=== PATIENT | female | born 1950 | race Caucasian/White ===

== ENCOUNTER → 2024-01-12 09:00 | Outpatient (BNVA) | payer OTHER, SELFPAY | PROVIDERS: PCP Nurse Practitioner Family; Visit Provider Nurse Practitioner Family | DX: E78.00 Pure hypercholesterolemia, unspecified (principal); I10 Essential (primary) hypertension | CPT/HCPCS: 80053; 80061; 85025 ==

== ENCOUNTER → 2024-07-24 10:30 | Outpatient (BNVA) | payer OTHER, SELFPAY | PROVIDERS: PCP Nurse Practitioner Family; Visit Provider Nurse Practitioner Family | DX: I10 Essential (primary) hypertension (principal) | CPT/HCPCS: 80053; 80061 ==

== ENCOUNTER → 2024-08-03 14:31 | Outpatient (BNVA) | payer OTHER, SELFPAY | PROVIDERS: PCP Nurse Practitioner Family; Visit Provider Nurse Practitioner Family | DX: R74.8 Abnormal levels of other serum enzymes (principal) | CPT/HCPCS: 82977; 86705; 86706; 86709; 86803; 87340 ==

== ENCOUNTER 2024-08-09 07:19 | Outpatient (CLI) | payer OTHER, MEDICAID, SELFPAY ==
--- NOTE | 2024-08-09 07:45 | US_ITS ---
WS: [id number] RIGHT UPPER QUADRANT ULTRASOUND HISTORY: R74.8 - Abnormal levels of other serum enzymes COMPARISON: None available. Liver: 12.8 cm in length. Normal size liver and echogenicity. No bile duct dilatation or mass. Portal Vein: Normal hepatopetal flow with monophasic waveform. Gallbladder: Prior cholecystectomy. CBD: 0.4 cm Pancreas: Normal size and echogenicity. Right kidney: 11.2 cm in length. Exophytic cyst lower pole measures 3.7 x 3.3 x 3.9 cm. No solid mass or obstruction. Aorta and IVC: Unremarkable abdominal aorta and IVC. No ascites. US/US liver [id number] IMPRESSION: 1. Prior cholecystectomy. 2. Normal common bile duct. No intrahepatic duct dilatation. 3. Lower pole RIGHT renal cyst, 3.9 cm.
== END 2024-08-09 07:20 | disposition home or self-care (01) ==
PROVIDERS: PCP Nurse Practitioner Family; Visit Provider Nurse Practitioner Family
DX: R74.8 Abnormal levels of other serum enzymes (principal); Z90.49 Acquired absence of other specified parts of digestive tract; N28.1 Cyst of kidney, acquired
CPT/HCPCS: 76705

== ENCOUNTER → 2025-01-22 10:00 | Outpatient (BNVA) | payer OTHER, MEDICAID, SELFPAY | PROVIDERS: PCP Nurse Practitioner Family; Visit Provider Nurse Practitioner Family | DX: I10 Essential (primary) hypertension (principal) | CPT/HCPCS: 80053; 80061 ==

== ENCOUNTER 2025-02-02 13:14 | Outpatient (CLI) | payer OTHER, MEDICAID, SELFPAY ==
--- NOTE | 2025-02-02 13:30 | XR_ITS ---
WS: [id number] DEXA (DUAL ENERGY X-RAY ABSORPTIOMETRY) Bone mineral density was performed using a Intent machine. HISTORY: Z78.0 - Asymptomatic menopausal state COMPARISON: None available. Lumbar spine BMD (L1-L4): 1.128 g/cm2 T score: -0.4 Z score: 0.5 Total hip BMD: Left: 0.935 g/cm2. T score: -0.6 Z score: 0.6 Right: 0.980 g/cm2. T score: -0.2 Z score: 1.0 10 year probability of a major osteoporotic fracture is 11.0%. XR/XR DEXA axial skeleton* 94802 IMPRESSION: NORMAL BONE MINERAL DENSITY based upon the WHO classification for females.
== END 2025-02-02 13:15 | disposition home or self-care (01) ==
LOC: RAD 13:16
PROVIDERS: PCP Nurse Practitioner Family; Visit Provider Nurse Practitioner Family
DX: Z13.820 Encounter for screening for osteoporosis (principal); Z78.0 Asymptomatic menopausal state
CPT/HCPCS: 77080; 99204

== ENCOUNTER 2025-02-13 09:42 | Outpatient (CLI) | payer OTHER, MEDICAID, SELFPAY | END 2025-02-13 09:43 | disposition home or self-care (01) | LOC: MOBLMAM 09:46 | PROVIDERS: PCP Nurse Practitioner Family; Visit Provider Nurse Practitioner Family | DX: Z12.31 Encounter for screening mammogram for malignant neoplasm of breast (principal) | CPT/HCPCS: 77063; 77067 ==

== ENCOUNTER → 2025-02-21 10:46 | Day surgery (SDC) | payer OTHER, MEDICAID, SELFPAY ==
[2025-02-21 11:27] VITALS: BP 151/90; PULSE 96; RESP 18; TEMP 36.4; O2SAT 96
[2025-02-21 11:30] VITALS: BMI 35.4
--- NOTE | 2025-02-21 11:47 | ECG_ITS ---
[facility] Test Date: 2025-02-21 Pat Name: Kasey Yao Department: Room: Gender: Female Director Asset: : [id number] Requested By: Jeff Ramos Order Number: [id number] Jaquelin MD: Nixon Estrada M.D. Measurements Intervals [place] Rate: 82 P: 44 SD: 195 QRS: -13 QRSD: 108 T: 30 QT: 382 QTc: 447 Interpretive Statements SINUS RHYTHM WITH OCCASIONAL VENTRICULAR PREMATURE COMPLEXES POSSIBLE ANTERIOR MYOCARDIAL INFARCTION , OF INDETERMINATE AGE [30 ms Q WAVE IN V3/V4, OR R < 0.2 mV IN V4] INFERIOR INFARCT, AGE INDETERMINATE No previous ECG available for comparison Electronically Signed On 02-21-2025 21:36:15 CDT by Nixon Estrada M.D. [email or web address]
--- NOTE | 2025-02-21 11:52 | W.PM.OPSUD ---
Surgery/Procedure H&P Update DATE OF PROCEDURE: February 21, 2025 DATE H&P PERFORMED: 02/02/25 H&P UPDATE INFORMATION: I have reviewed H&P completed within last 30 days, I have examined patient prior to procedure, No changes to prior documentation and Risks and benefits of the procedure reviewed CHANGES TO PREVIOUS DOCUMENTATION: Surgical site marked in preop with patient's input. Nurse and family present. PLANNED PROCEDURE: Operation Date: 02/21/25 13:05 Proposed Procedures p Excision Tissue Back 28252 D17.9(Not Applicable) - Jeff Abraham MD
--- NOTE | 2025-02-21 15:29 | PC.NURSE ---
1500: pt opted to reschedule procedure due to her surgeon having an emergent procedure from the emergency dept added
== END ==
PROVIDERS: PCP Nurse Practitioner Family; Visit Provider Student in an Organized Health Care Education/Training Program
DX: Z53.8 Procedure and treatment not carried out for other reasons (principal)
CPT/HCPCS: 93005; J7030

== ENCOUNTER 2025-03-06 11:05 | Emergency (ER) | payer OTHER, MEDICAID, SELFPAY ==
--- NOTE | 2025-03-06 11:09 | XR_ITS ---
WS: [id number] Right knee, 3 views, 03/06/2025 Clinical Data: fall, pain Comparison: None. Findings: No fractures or dislocations are seen. There is medial joint compartment narrowing with soft tissue calcifications adjacent to the medial tibial plateau. There is sclerosis of the medial tibial plateau and adjacent medial femoral articular surface along with mild irregularity. The patella shows posterior irregularity, spurring and a large osteophyte superior to the joint space. The soft tissues are unremarkable. XR/XR knee RT 3V* [id number] Impression: 1. Negative for fracture or dislocation. 2. Severe osteoarthritis of the right knee.
--- NOTE | 2025-03-06 11:09 | XR_ITS ---
WS: [email or web address] Left knee, 3 views, 03/06/2025 Clinical Data: fall, pain Comparison: None. Findings: No fractures or dislocations are seen. There is medial joint compartment narrowing with sclerosis of the medial tibial articular surface. There are osteophytes of the medial femoral condyle and medial tibial plateau. The posterior patella shows irregularity and spurring along with narrowing of the femoral patellar articulation. Normal. The patella is intact. The soft tissues are unremarkable. XR/XR knee LT 3V* [id number] Impression: 1 negative for fracture or dislocation. 2. Severe osteoarthritis of the left knee.
--- NOTE | 2025-03-06 11:09 | CT_ITS ---
WS: [email or web address] CT CERVICAL TRAUMA TECHNIQUE: Noncontrast CT of the cervical spine with coronal and sagittal reformatted images. CLINICAL INFORMATION: fall, neck pain COMPARISON: None. DLP: 1916.[address] scans at [facility] use at least one of these dose optimization techniques: automated exposure control; mA and/or kV adjustment per patient size (includes targeted exams where dose is matched to clinical indication); or iterative reconstruction. FINDINGS: Straightening of the normal cervical lordosis. Mild spondylitic changes. Disc osteophyte complex worse at C6-7 with mild central canal stenosis. Normal craniocervical junction. Normal C1-C2 articulation. Dens is normal in appearance. Normal occipital condyles. Normal C1 ring. No evidence of acute fracture or dislocation. Normal prevertebral soft tissues. Slightly spiculated 5 mm nodule RIGHT lung apex. Recommend chest CT follow-up Mastoids air cells are well aerated. CT/CT cervical spin wo con* [id number] IMPRESSION: 1. No evidence of acute fracture or dislocation. 2. Slightly spiculated 5 mm nodule RIGHT lung apex. Recommend chest CT follow- up
--- NOTE | 2025-03-06 11:09 | CT_ITS ---
WS: [email or web address] CT FACIAL BONES TECHNIQUE: Noncontrast facial bones with coronal and sagittal reformatted images. CLINICAL INFORMATION: trauamatic facial pain COMPARISON: None. DLP: 1916.[address] scans at [facility] use at least one of these dose optimization techniques: automated exposure control; mA and/or kV adjustment per patient size (includes targeted exams where dose is matched to clinical indication); or iterative reconstruction. FINDINGS: Soft tissue edema overlying the nasal bones. Comminuted fractures distal nasal tuft. Nondisplaced RIGHT nasal bone buckle fracture. Mild RIGHT to LEFT nasal deviation likely chronic with a leftward directed spur. Maxillary sinuses are well aerated. Mild mucosal thickening in the ethmoid air cells with a few secretions in the sphenoid sinuses and LEFT posterior ethmoid air cell. Mastoid air cells are well aerated. Vascular calcification. Normal posterior nasopharynx. Normal parapharyngeal fat. Normal pterygoid plates. Normal lamina papyracea. Normal lateral orbits and sphenoid wing. No evidence of mandibular fracture or dislocation. Normal zygoma. Inferior orbits appear intact. CT/CT facial bones wo con* [id number] IMPRESSION: Comminuted fractures distal nasal tuft. Small nondisplaced buckle fracture RIGH T nasal bones.
--- NOTE | 2025-03-06 11:09 | CT_ITS ---
WS: [email or web address] CT HEAD TECHNIQUE: Noncontrast CT of the head obtained from the skullbase to the vertex. CLINICAL INFORMATION: fall, head injury COMPARISON: None. DLP: 1916.[address] scans at [facility] use at least one of these dose optimization techniques: automated exposure control; mA and/or kV adjustment per patient size (includes targeted exams where dose is matched to clinical indication); or iterative reconstruction. FINDINGS: No evidence of intracranial hemorrhage or mass effect. Ventricular system and basal cisterns are patent. Mild small vessel changes with mild parenchymal volume loss. No extra-axial fluid collections. No evidence of mass or mass effect. Tiny chronic lacunar infarct RIGHT cerebellum. Vascular calcification. Benign basal ganglia mineralization. Paranasal sinuses and mastoid air cells are well aerated. .Normal visualized soft tissues. CT/CT head wo con* [id number] IMPRESSION: 1. No evidence of intracranial hemorrhage or mass effect. 2. No acute intracranial findings.
--- NOTE | 2025-03-06 11:09 | W.ED.HEATRA ---
HPI - Head Injury General: Chief complaint: Fall Stated complaint: Fall History of Present Illness: 74-year-old female with a history of GERD, COPD and hypertension who presents to the emergency room by ambulance after having a fall. She missed a step at the health department and fell onto her knees and face. She has abrasions on her nose. Bruising on her right eye. No loss of consciousness. No altered mental status. No nausea or vomiting. No anticoagulation. She has pain in her knees more the left than the right. She says she has chronic pain in them as well. Related Data Home Medications ?Medication ?Instructions ?Recorded ?Confirmed docusate sodium 100 mg capsule 100 mg PO DAILY 01/12/24 02/27/25 atorvastatin 20 mg tablet 20 mg PO DAILY 02/20/25 02/27/25 diltiazem HCl 360 mg 360 mg PO DAILY 02/20/25 02/27/25 capsule,extended release 24 hr omeprazole 40 mg capsule,delayed 40 mg PO DAILY 02/20/25 02/27/25 release ropinirole 1 mg tablet 2 mg PO BID 02/20/25 02/27/25 Previous Rx's ?Medication ?Instructions ?Recorded albuterol sulfate 90 mcg/actuation 2 puff inhalation Q4H #8.5 grams 07/24/24 aerosol inhaler alendronate 70 mg tablet 70 mg PO .weekly #12 tabs 07/24/24 fluticasone fur. 100 mcg-umeclid 1 inh inhalation DAILY 90 days #60 07/24/24 62.5 mcg-vilant 25 mcg ea inhalat.powder (Trelegy Ellipta) hydrochlorothiazide 12.5 mg tablet 12.5 mg PO QAM #90 tabs 07/24/24 potassium chloride 10 mEq 10 meq PO DAILY #90 tabs 07/24/24 tablet,extended release tolterodine 4 mg capsule,extended 4 mg PO DAILY #90 caps 07/24/24 release 24 hr metoclopramide HCl 5 mg tablet 5 mg PO BID #180 tabs 01/22/25 baclofen 10 mg tablet 10 mg PO BID PRN muscle spasm #30 02/27/25 tabs tramadol 50 mg tablet 50 mg PO Q8H PRN pain #10 tabs 03/06/25 Allergies Allergy/AdvReac Type Severity Reaction Status Date / Time No Known Allergies Allergy Verified 02/27/25 08:20 Review of Systems Narrative: Constitutional symptoms: Negative except as documented in HPI. Skin symptoms: Negative except as documented in HPI. Eye symptoms: Negative except as documented in HPI. ENMT symptoms: Negative except as documented in HPI. Respiratory symptoms: Negative except as documented in HPI. Cardiovascular symptoms: Negative except as documented in HPI. Gastrointestinal symptoms: Negative except as documented in HPI. Genitourinary symptoms: Negative except as documented in HPI. Musculoskeletal symptoms: Negative except as documented in HPI. Neurologic symptoms: Negative except as documented in HPI. Psychiatric symptoms: Negative except as documented in HPI. Endocrine symptoms: Negative except as documented in HPI. [facility] ED PFSH: Family History (Updated 02/02/25 @ 12:00 by SARAI Langley) Brother Diabetes Heart attack Mother Mini stroke Father Black lung disease Social History Smoking and tobacco/nicotine status: never used tobacco/nicotine Physical Exam Narrative: EXAM NARRATIVE: General: Alert, no acute distress. Skin: Warm, dry. Head: Normocephalic, abrasions on the nose, bruising around the right eye. There are some small puncture wounds at the distal tip of the nose. Neck: Supple, trachea midline. Eye: Extraocular movements are intact. Ears, nose, mouth and throat: mucosa moist. Cardiovascular: Regular, Normal peripheral perfusion. Respiratory: Lungs are clear to auscultation, respirations are non-labored, breath sounds are equal, Symmetrical chest wall expansion. Gastrointestinal: Soft, Nontender, Non distended Musculoskeletal: Normal ROM, no deformity. Neurological: Alert and oriented, No focal neurological deficit observed. Psychiatric: Cooperative, appropriate mood & affect. Course Vital Signs: Vital signs: Vital Signs Temperature 97.8 F 03/06/25 11:10 Pulse Rate 94 03/06/25 11:10 Respiratory Rate 19 H 03/06/25 11:10 Blood Pressure 140/83 03/06/25 11:10 Pulse Oximetry 99 03/06/25 11:10 Oxygen Delivery Me thod Room Air 03/06/25 11:10 MDM - Head Injury Medcial Decision Making Medical decision making: Differential diagnosis including but not limited to and based on the above HPI, review of systems and physical exam: patient with fall and head injury. Subdural hematoma, subarachnoid hemorrhage, concussion, skull fracture. Orders placed to evaluate differential diagnosis based on the above differential, HPI and physical exam CT scan of the head was ordered. Also would have concern for nasal and facial fractures so a CT of the face was ordered. She is having some neck pain so CT of the cervical spine was ordered to rule out fractures etc. Also x-rays of her knees bilaterally to rule out fractures. CT head: No acute intracranial process. No intracranial hemorrhage, no evidence of infarct. No evidence of acute fracture. This was reviewed and interpreted by myself the emergency room physician. I also reviewed the radiology report. CT of the cervical spine: No fracture. Good alignment. No step-offs. This was reviewed and interpreted by myself the emergency room physician. I also reviewed the radiologist report. There was an incidental pulmonary nodule which I have discussed with the patient that she needs follow-up CT of the facial bones: Comminuted fractures distal nasal tuft and a small nondisplaced buckle fracture right nasal bone. No septal hematoma on exam. This was reviewed and interpreted by myself the emergency room physician. I also reviewed the radiology report. X-ray of the knees bilaterally: Severe osteoarthritis but no acute fractures or dislocations. This was reviewed and interpreted by myself the emergency room physician. I also reviewed the radiology report. I reviewed the patient's medical record. 74-year-old female with a history of GERD, COPD and hypertension Assessment and plan: Fall Head injury Nasal fractures - Discharged home - Discussed plan with patient. Answered any questions. - Evaluation and treatment of this problem were appropriate in the emergency setting. Lab Data Radiology Impressions Cervical Spine CT 03/06/25 11:09 IMPRESSION: 1. No evidence of acute fracture or dislocation. 2. Slightly spiculated 5 mm nodule RIGHT lung apex. Recommend chest CT follow-up Face CT 03/06/25 11:09 IMPRESSION: Comminuted fractures distal nasal tuft. Small nondisplaced buckle fracture RIGHT nasal bones. Head CT 03/06/25 11:09 IMPRESSION: 1. No evidence of intracranial hemorrhage or mass effect. 2. No acute intracranial findings. Knee X-Ray 03/06/25 11:09 Impression: 1 negative for fracture or dislocation. 2. Severe osteoarthritis of the left knee. All radiology interpretation(s) finalized by discharge Discharge Plan Discharge Patient Disposition: Home Clinical Impression: Fracture, nasal, Head injury, Fall Condition: Stable Prescriptions: New tramadol 50 mg tablet 50 mg PO Q8H PRN (Reason: pain) Qty: 10 0RF No Action docusate sodium 100 mg capsule 100 mg PO DAILY hydrochlorothiazide 12.5 mg tablet 12.5 mg PO QAM Qty: 90 3RF tolterodine 4 mg capsule,extended release 24hr 4 mg PO DAILY Qty: 90 3RF potassium chloride 10 mEq tablet extended release 10 meq PO DAILY Qty: 90 3RF alendronate 70 mg tablet 70 mg PO .weekly Qty: 12 3RF albuterol sulfate 90 mcg/actuation HFA aerosol inhaler 2 puff inhalation Q4H Qty: 8.5 3RF Trelegy Ellipta 100-62.5-25 mcg blister with device 1 inh inhalation DAILY 90 Days Qty: 60 3RF metoclopramide HCl 5 mg tablet 5 mg PO BID Qty: 180 3RF baclofen 10 mg tablet 10 mg PO BID PRN (Reason: muscle spasm) Qty: 30 0RF atorvastatin 20 mg tablet 20 mg PO DAILY Rx Instructions: TAKE 1 TABLET BY MOUTH DAILY ropinirole 1 mg tablet 2 mg PO BID Rx Instructions: TAKE 2 TABLETS BY MOUTH TWICE DAILY diltiazem HCl 360 mg capsule,extended release 24hr 360 mg PO DAILY Rx Instructions: TAKE 1 CAPSULE BY MOUTH EVERY MORNING. HOLD IF SYSTOLIC BLOOD PRESSURE IS LESS THAN 110 omeprazole 40 mg capsule,delayed release(DR/EC) 40 mg PO DAILY Rx Instructions: TAKE 1 CAPSULE BY MOUTH EVERY DAY BEFORE A MEAL Discharge Orders: Discharge ED (Routine); Ordered 03/06/25 Ordered By: Luz Wolfe Referrals: Neymar Ron MD [Physician, Ear, Nose, Throat] Referral Note: Please call for appointment with ENT for reevaluation of nasal fractures Mandi Pabon NP [Primary Care Provider, Family Practice] Discharge Diet: Usual diet Discharge Activity: Increase activity as tolerated Patient Instructions: Opioid Safety, Pain Management, Patient Portal & Leslye Instructions Activity Restrictions/Additional Instructions: A pulmonary nodule was seen on imaging. This will need follow up imaging with your primary provider. Please schedule an appointment concerning this. Thank you for choosing [facility] for your healthcare needs today. You have been screened and evaluated and felt safe for discharge. Health conditions do change or evolve sometimes and as such it is important that you follow up with your Primary Doctor to be re checked, 3-5 days is a general good time frame for follow up. You are always welcome to return to the ED for re assessment if your symptoms are worsening or you have new concerns Print Language: Sami Coding Level of Care Code ED L D Rn for Oscar Ferreira
[2025-03-06 11:10] VITALS: BP 140/83; PULSE 94; RESP 19; TEMP 36.6; O2SAT 99; BMI 35.4
[2025-03-06 12:47] VITALS: BP 148/80; PULSE 69; O2SAT 97
== END 2025-03-06 12:48 | disposition home or self-care (01) ==
PROVIDERS: Emergency Provider Emergency Medicine; PCP Nurse Practitioner Family
DX: S02.2XXA Fracture of nasal bones, initial encounter for closed fracture (principal); S09.90XA Unspecified injury of head, initial encounter; J44.9 Chronic obstructive pulmonary disease, unspecified; I10 Essential (primary) hypertension; W10.9XXA Fall (on) (from) unspecified stairs and steps, initial encounter
CPT/HCPCS: 70450; 70486; 72125; 73562; 99284

== ENCOUNTER 2025-04-04 08:39 | Day surgery (SDC) | payer OTHER, MEDICAID, SELFPAY ==
[2025-04-04] VITALS (10 sets, daily range): BP systolic 102–160; BP diastolic 52–90; PULSE 62–89; RESP 16–18; TEMP 36.2–36.4; O2SAT 92–100; BMI 34.9
--- NOTE | 2025-04-04 10:04 | ANES.PREANE2 ---
Pre-Anesthetic Assessment Height/Weight: Height 5 ft 3 in Weight 197 lb Temp Pulse Resp BP Pulse Ox O2 Del Method 97.3 F L 89 18 160/90 96 Room Air 04/04/25 09:04 04/04/25 09:04 04/04/25 09:04 04/04/25 09:04 04/04/25 09:04 04/04/25 09:12 Preop Diagnosis: Back mass Operation Date: 04/04/25 10:20 Proposed Procedures p Back Soft Tissue Mass Excision [id number] D17.9(Not Applicable) - Jeff Abraham MD Was Beta Artem taken within 24 hours: N/A Was Clonidine taken within 24 hours: N/A Last intake: Intake Last Liquid Date 04/03/25 Last Liquid Time 21:00 Last Solid Date 04/03/25 Last Solid Time 18:30 Social No alcohol and No tobacco Exam alert, oriented x 3, clear to auscultation bilaterally and regular rate & rhythm Airway Submandibular: within normal limits Cervical ROM: within normal limits Mallampati: Class III Comments: Comments: Smaller mouth opening, dentures Anesthetic Plan ASA status: 3 Anesthesia: General Other: History of PONV NPO since yesterday evening History of hypertension on HCTZ and diltiazem. Preop BP 160/90 GERD on omeprazole COPD Labs performed in [place] and acceptable for today Plan for GETA with TIVA anesthetic Medications/Allergies Home Medications ?Medication ?Instructions ?Recorded ?Confirmed ?Last Taken ?Type docusate sodium 100 mg capsule 100 mg PO DAILY 01/12/24 04/03/25 04/03/25 History albuterol sulfate 90 mcg/actuation 2 puff inhalation Q4H #8.5 grams 07/24/24 04/04/25 04/04/25 Rx aerosol inhaler fluticasone fur. 100 mcg-umeclid 1 inh inhalation DAILY 90 days #60 07/24/24 04/03/25 04/02/25 Rx 62.5 mcg-vilant 25 mcg ea inhalat.powder (Trelegy Ellipta) hydrochlorothiazide 12.5 mg tablet 12.5 mg PO QAM #90 tabs 07/24/24 04/03/25 04/03/25 Rx potassium chloride 10 mEq 10 meq PO DAILY #90 tabs 07/24/24 04/03/25 04/03/25 Rx tablet,extended release tolterodine 4 mg capsule,extended 4 mg PO DAILY #90 caps 07/24/24 04/03/25 04/02/25 Rx release 24 hr metoclopramide HCl 5 mg tablet 5 mg PO BID #180 tabs 01/22/25 04/03/25 04/03/25 Rx atorvastatin 20 mg tablet 20 mg PO DAILY 02/20/25 04/03/25 04/03/25 History diltiazem HCl 360 mg 360 mg PO DAILY 02/20/25 04/03/25 04/04/25 History capsule,extended release 24 hr (Cardizem CD) omeprazole 40 mg capsule,delayed 40 mg PO DAILY 02/20/25 04/03/25 04/04/25 History release ropinirole 1 mg tablet 2 mg PO BID 02/20/25 04/03/25 04/03/25 History baclofen 10 mg tablet 10 mg PO BID PRN muscle spasm #30 02/27/25 04/03/25 04/02/25 Rx tabs tramadol 50 mg tablet 50 mg PO Q8H PRN pain #10 tabs 03/06/25 04/03/25 Unknown Rx alendronate 70 mg tablet (Fosamax) 70 mg PO .weekly 04/03/25 04/03/25 04/03/25 History Allergies Allergy/AdvReac Type Severity Reaction Status Date / Time No Known Allergies Allergy Verified 04/03/25 10:21 Current Medications Generic Name Dose Route Start Last Admin Trade Name Freq PRN Reason Stop Dose Admin Sodium Chloride 1,000 mls @ 30 mls/hr 04/04/25 09:00 04/04/25 09:37 Sodium Chloride 0.9% IV 04/05/25 08:59 30 mls/hr .Q24H VISHAL Administration PFSH Anesthesia Family History (Updated 02/02/25 @ 12:00 by SARAI Langley) Brother Diabetes Heart attack Mother Mini stroke Father Black lung disease Social History Smoking and tobacco/nicotine status: never used tobacco/nicotine
--- NOTE | 2025-04-04 10:13 | W.PM.OPSFHP ---
Same Day Surgery H&P Indication for Procedure/HPI DATE OF PROCEDURE: April 04, 2025 CHIEF COMPLAINT/INDICATIONFOR SURGICAL PROCEDURE: lipoma back PREOP DIAGNOSIS: lipoma PLANNED PROCEDURE: Operation Date: 04/04/25 10:20 Proposed Procedures p Back Soft Tissue Mass Excision [id number] D17.9(Not Applicable) - Jeff Abraham MD Medications/Allergies* Home Medications ?Medication ?Instructions ?Recorded ?Confirmed ?Type docusate sodium 100 mg capsule 100 mg PO DAILY 01/12/24 04/03/25 History atorvastatin 20 mg tablet 20 mg PO DAILY 02/20/25 04/03/25 History diltiazem HCl 360 mg 360 mg PO DAILY 02/20/25 04/03/25 History capsule,extended release 24 hr (Cardizem CD) omeprazole 40 mg capsule,delayed 40 mg PO DAILY 02/20/25 04/03/25 History release ropinirole 1 mg tablet 2 mg PO BID 02/20/25 04/03/25 History alendronate 70 mg tablet (Fosamax) 70 mg PO .weekly 04/03/25 04/03/25 History Allergies/Adverse Reactions Allergy/AdvReac Type Severity Reaction Status Date / Time No Known Allergies Allergy Verified 04/03/25 10:21 Current Medications: Generic Name Dose Route Start Last Admin Trade Name Freq PRN Reason Stop Dose Admin Sodium Chloride 1,000 mls @ 30 mls/hr 04/04/25 09:00 04/04/25 09:37 Sodium Chloride 0.9% IV 04/05/25 08:59 30 mls/hr .Q24H VISHAL Administration Pertinent History/Comorbid Conditions* Family History (Updated 02/02/25 @ 12:00 by SARAI Langley) Black lung disease Father Diabetes Brother Mini stroke Mother Heart attack Brother Social History Smoking and tobacco/nicotine status: never used tobacco/nicotine Pertinent Exam Findings alert, oriented x 3, clear to auscultation bilaterally and operative site marked Lipoma marked with patient's input. Right lumbar area. Recommendations Risks and benefits of procedure reviewed and Patient/family agree to proceed Surgery/Procedure today Coding Level of Care Code Acute Code for Chg Fwd
[2025-04-04] MEDS: ceFAZolin 2,000 mg SDV 2000 MG IVP (10:58)
[2025-04-04] MEDS: lidocaine-epi 1% 20 mL INJ 10 ML INJECTION (11:19)
--- NOTE | 2025-04-04 11:34 | PM.OP ---
Operative Report Date of procedure: April 04, 2025 Pre-op diagnosis: Back lipoma Post-op diagnosis: same Post-op findings: 4 x 2 x 3 cm lipoma excised from back Procedure done: Soft tissue mass excision of back Implants: N/A Specimens removed/disposition: Lipoma sent to pathology Pathology: Lipoma sent to pathology Surgeon: Jeff Abraham MD Nuclear Auxiliary Operator: N/A Anesthesia: MAC Estimated blood loss (mL): 5 Complications: N/A Findings: 4 x 2 x 3 cm lipoma excised from back Condition: stable Disposition: same day Brief History: 74-year-old female who presented with a back lipoma. Discussed risk and benefits and patient agreed to proceed with soft tissue mass excision of back. Lipoma marked in preop area with patient's input. Procedure: Preoperative Ancef administered. SCDs on and working. General anesthesia induced. Patient was placed prone in the operating room table. Upper and lower extremities were appropriately padded. ET tube secured. Right lumbar region prepped and draped in the usual sterile fashion. A 5 cm incision was carried out over the lipoma. Electrocautery was used to dissect down to the subcutaneous tissues. Proximal and distal flaps were raised. Lipoma was grabbed with an Allis clamp. Electrocautery was used to dissect around the lipoma capsule making sure it remained intact. Lipoma was sent to pathology with its capsule intact. Wound was irrigated using warm normal saline. Hemostasis was achieved using electrocautery. Deep dermal layer closed using running 2-0 Vicryl. Skin closed using running 4-0 Monocryl. Prevena dressing placed at the skin level together with skin glue. The patient woke up from anesthesia without any complications.
--- NOTE | 2025-04-04 13:00 | ANE.PACU2 ---
Inpatient post-anesthesia follow up: Airway intact: Yes Vital signs: Temperature 97.2 F Pulse Rate 62 Respiratory Rate 17 Blood Pressure 118/68 Pulse Oximetry 95 Oxygen Delivery Me thod Room Air Oxygen Flow Rate Fraction of Inspir ed Oxygen Hydration adequate: Yes Nausea and vomiting: No Pain level: 2 Mental status: Baseline
== END 2025-04-04 13:00 | disposition home or self-care (01) ==
PROVIDERS: PCP Nurse Practitioner Family; Visit Provider Student in an Organized Health Care Education/Training Program
PROC: (CPT 11406; principal; 2025-04-04 10:20)
DX: D17.1 Benign lipomatous neoplasm of skin and subcutaneous tissue of trunk (principal); K21.9 Gastro-esophageal reflux disease without esophagitis; I10 Essential (primary) hypertension; J44.9 Chronic obstructive pulmonary disease, unspecified
CPT/HCPCS: 11406; 12032; 88304; J0690; J2704; J3010; J3490; J7030; J9999

== ENCOUNTER → 2025-04-11 09:35 | Outpatient (BNVA) | payer OTHER, MEDICAID, SELFPAY | PROVIDERS: PCP Nurse Practitioner Family; Visit Provider Nurse Practitioner Family | DX: N39.0 Urinary tract infection, site not specified (principal) | CPT/HCPCS: 81000; 87086 ==

== ENCOUNTER → 2025-04-19 10:03 | Outpatient (BNVA) | payer OTHER, MEDICAID, SELFPAY | PROVIDERS: PCP Nurse Practitioner Family; Visit Provider Student in an Organized Health Care Education/Training Program | DX: Z86.018 Personal history of other benign neoplasm (principal); Z98.890 Other specified postprocedural states | CPT/HCPCS: 99024 ==

== ENCOUNTER 2025-05-10 16:49 | Outpatient (CLI) | payer OTHER, MEDICAID, SELFPAY ==
--- NOTE | 2025-05-10 17:15 | CT_ITS ---
WS: [id number] CT chest w con* [id number] HISTORY: R91.1 - Solitary pulmonary nodule TECHNIQUE: Axial imaging performed through the thorax. Coronal and sagittal reformats are submitted. All CT scans at [facility] use at least one of these dose optimization techniques: automated exposure control; mA and/or kV adjustment per patient size (includes targeted exams where dose is matched to clinical indication); or iterative reconstruction. CONTRAST: Omnipaque 350; 100 mL IV. DLP: 456.20 mGy.cm COMPARISON: 03/06/[address] Lungs and central airway: Lungs are well expanded. Reidentified is a slightly spiculated nodule measuring 3.7 mm at the RIGHT apex. This nodule has not changed in size and may be partially calcified. There are a few additional scattered nodules noted bilaterally. Largest nodules 8 mm subpleural LEFT lower lobe. There is a benign granuloma at the RIGHT lung base along the diaphragmatic surface. 2 mm nodule along the LEFT fissure. 3 mm nodule posterior RIGHT upper lobe. Pleura: Normal. No pleural effusion. Heart and pericardium: Normal size heart with no pericardial effusion. Mediastinum and cornel: No mediastinum or hilar adenopathy. Vessels: Mild atherosclerosis aorta. Normal size aorta and pulmonary artery. Chest wall and lower neck: 5 mm RIGHT thyroid nodule. Upper abdomen: Small hiatal hernia. Mild hepatic steatosis. Normal adrenal glands. Cortical cyst 6 mm upper pole RIGHT kidney. Osseous structures: Degenerative hypertrophic osteophytes throughout the thoracic spine. At T7-8 there is a large osteophyte encroaching upon the ventral thoracic cord. Mild anterior wedging of T11. CT/CT chest w con* [id number] IMPRESSION: 1. Multiple subcentimeter pulmonary nodules as described above. The largest me asures 8 mm and is subpleural in the LEFT lower lobe. These are probably all po stinflammatory nodules. Recommend follow-up chest CT in 6 to 12 months. 2. Mild hepatic steatosis. 3. Vertebral osteophyte at T7-8 encroaches into the ventral thecal sac and con tacts the thoracic cord.
[2025-05-10 17:24] LABS: Blood Urea Nitrogen 12 mg/dL (8-23)
[2025-05-10] MEDS: iohexol 350 mg/mL 500 mL Btl (per mL) IV (17:43)
== END 2025-05-10 16:50 | disposition home or self-care (01) ==
LOC: RAD 16:50
PROVIDERS: PCP Nurse Practitioner Family; Visit Provider Nurse Practitioner Family
DX: R91.1 Solitary pulmonary nodule (principal); R91.8 Other nonspecific abnormal finding of lung field; K76.0 Fatty (change of) liver, not elsewhere classified; M47.14 Other spondylosis with myelopathy, thoracic region
CPT/HCPCS: 71260; 82565; 84520